=== PATIENT | female | born 1960 | race Two or more races ===

== ENCOUNTER 2019-03-28 09:56 | Day surgery (SDC) | payer OTHER ==
[2019-03-25 14:10] VITALS: BMI 28.7
[2019-03-28] MEDS ORDERED: MORPHINE SULFATE 2 MG/ML VIAL IVPUSH PRN (13:19)
--- NOTE | 2019-03-28 13:26 | HP ---
History & Physical Update - History History: No Change - Physical Physical: No Change - Assessment Assessment: No Change - Plan Plan: No Change
[2019-03-28] MEDS ORDERED: LACTATED RINGERS SOLUTION 1,000 ML IV SCH (13:30)
[2019-03-28] MEDS ORDERED: PROPOFOL 20 ML ONE ×2 (13:39)
[2019-03-28] MEDS ORDERED: MIDAZOLAM HCL 2 MG/2 ML SINGLE DOSE VIAL ONE (13:40)
[2019-03-28] MEDS ORDERED: ceFAZolin SODIUM 1 GM VIAL IVPB ONE (13:56)
[2019-03-28] MEDS ORDERED: oxyCODONE HCL 5 MG TABLET PO PRN (15:07)
--- NOTE | 2019-03-28 15:27 | OP ---
Operative Note - Note: Operative Date: 03/28/19 Pre-Operative Diagnosis: left vein varicosities Operation: s/p left saphrenofemoral junction ligation with stab phlebectomies Surgeon: Tommy Yates Sausage Grinder: Kim Saravia Anesthesiologist/STEAMER OPERATOR: Jose Kemp Anesthesia: General Estimated Blood Loss (mls): 30 Fluid Volume Replaced (mls): 750 Operative Report Dictated: Yes
--- NOTE | 2019-03-28 15:28 | SURG ---
Surgery Construction Quality Control Manager Note Construction Quality Control Manager: Kim Saravia PA-C Date of Service: 03/28/19 Diagnosis: left vein varicosities Procedure: s/p left saphrenofemoral junction ligation with stab phlebectomies I was present for the entirety of the operative procedure. For further detail, please refer to operative report. Visit type - Case Type Case Type: Scheduled - Emergency Emergency Visit: No - New patient This patient is new to me today: Yes Date on this admission: 03/28/19
[2019-03-28] MEDS ORDERED: ONDANSETRON 4 MG/2 ML VIAL ONE (16:40)
[2019-03-28 16:41] VITALS: PULSE 77
[2019-03-28] MEDS ORDERED: ONDANSETRON 4 MG/2 ML VIAL IVPB PRN (16:45)
[2019-03-28] MEDS ORDERED: ONDANSETRON 4 MG/2 ML VIAL IVPB ONE (16:48)
[2019-03-28 18:32] VITALS: BP 128/67; TEMP 97.9
--- NOTE | 2019-03-30 17:14 | PATH ---
Surgical Pathology Report Patient Name: TRISTIAN MENDIETA [facility]. Rec. #: [id number] /Age/Gender: 1960 (Age: 59) / F Account: [id number] Location: [facility] SURGICAL Taken: 03/28/2019 Received: 03/29/2019 Reported: 03/30/2019 Physicians: Tommy Yates M.D. Specimen(s) Received VARICOSE VEINS LEFT LEG Clinical History Varicose veins left leg with pain Final Diagnosis VARICOSE VEINS, LEG, LEFT, MICROPHLEBECTOMY: VEINS WITH INTIMAL HYPERTROPHY AND FIBROSIS. Electronically Signed Radha Moe M.D. Gross Description Received in formalin labeled "varicose veins left leg," is a 2.0 x 1.3 x 0.3 cm aggregate of pan portions of vasculature, consistent with varicose veins. Fire Information Officer sections are submitted in one cassette. 03/29/2019 [place]03/29/2019
--- NOTE | 2019-04-01 11:35 | OP ---
DATE OF OPERATION: 03/28/2019 SURGEON: Tommy Yates MD STATION BAGGAGE AGENT: SHEILA Yancey PROCEDURE: Ligation of left saphenofemoral junction and microthrombectomy of left leg. PREOPERATIVE DIAGNOSIS: Symptomatic varicose veins of the left leg. POSTOPERATIVE DIAGNOSIS: Symptomatic varicose veins of the left leg. ANESTHESIA: General. ANESTHESIOLOGIST: Jose Kemp MD OPERATIVE FINDINGS: The saphenofemoral junction was dilated, and there were multiple varicosities extending over the anterior aspect of the thigh to the lateral calf. OPERATIVE PROCEDURE: Prior to entering the operating room, the varicose veins of the left thigh and calf were marked with the patient standing. Patient was then brought to surgery, and general anesthesia was induced. The left leg, groin, and lower abdominal wall were prepped with ChloraPrep. Time-out was performed. Skin incision was made in the left groin over the saphenofemoral junction, which had been mapped preoperatively with duplex imaging. Subcutaneous tissues were divided using cautery. The saphenofemoral junction was identified and sharply dissected. All side branches of the junction were taken with ties of silk and ligated and divided. The anterior saphenous vein was ligated and a section avulsed distally. The greater saphenous vein was also dissected distally and re-ligated and a portion remove. The wound was irrigated and closed with interrupted suture of 3-0 Vicryl and subcuticular suture of 4-0 Monocryl. Stab thrombectomy was then performed on the marked veins in the thigh and calf. In brief, incision was made over the marked vein with a [place] blade. The vein was elevated to the skin level with a vein hook and grasped with clamps. It was gently retracted from under the skin until the vein avulsed. Pressure was applied to the wound and the next more distal vein was treated in a similar fashion until all marked veins were removed. The leg was then elevated, washed with a saline, and dried. Xeroform gauze was applied to the incisions, and the leg was then wrapped with dry gauze, Kerlix, Webril, and Coban. Patient was then taken to the recovery room in stable condition. Víctor [id number]/[id number]
== END 2019-03-28 18:05 | disposition home or self-care (01) ==
LOC: JASU-SURG 09:56
PROVIDERS: ATTEND Surgery
PROC: 06DY0ZZ Extraction of Lower Vein, Open Approach (ICD-10-PCS; 2019-03-28)
PROC: 06LQ0ZZ Occlusion of Left Saphenous Vein, Open Approach (ICD-10-PCS; principal; 2019-03-28 12:00)
DX: I83.812 Varicose veins of left lower extremity with pain (principal); I10 Essential (primary) hypertension; E11.9 Type 2 diabetes mellitus without complications; Z79.84 Long term (current) use of oral hypoglycemic drugs
CPT/HCPCS: 82962; 88304-TC; 94760